=== PATIENT | female | born 1975 | race Hispanic/Latino ===

== ENCOUNTER 2017-07-15 22:22 | Emergency (ER) | payer BC ==
[2017-07-15 22:43] VITALS: BP 122/82; PULSE 111; TEMP 98.1; BMI 22.1
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
[2017-07-16 00:33] VITALS: RESP 18; O2SAT 99
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
== END 2017-07-16 00:33 | disposition left against medical advice (07) ==
LOC: ED 22:22
DX: S09.93XA Unspecified injury of face, initial encounter (principal); Y04.0XXA Assault by unarmed brawl or fight, initial encounter; Y92.009 Unspecified place in unspecified non-institutional (private) residence as the place of occurrence of the external cause

== ENCOUNTER 2018-07-03 16:48 | Emergency (ER) | payer OTHER, BC ==
[2018-07-03 16:54] VITALS: BMI 21.4
[2018-07-03 16:57] VITALS: RESP 18; TEMP 98
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
[2018-07-03 19:48] VITALS: BP 131/75
[2018-07-03 20:07] VITALS: PULSE 81; O2SAT 100
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
== END 2018-07-03 20:02 | disposition home or self-care (01) ==
LOC: ED 16:48
DX: M54.2 Cervicalgia (principal); S09.90XA Unspecified injury of head, initial encounter; V49.9XXA Car occupant (driver) (passenger) injured in unspecified traffic accident, initial encounter
CPT/HCPCS: 70450; 96372; 99285; J1885

== ENCOUNTER 2018-11-30 17:02 | Emergency (ER) | payer BC, OTHER ==
[2018-11-30 17:12] VITALS: BMI 22.1
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
[2018-11-30 19:23] VITALS: BP 121/56; PULSE 73; RESP 19; TEMP 98; O2SAT 98
== END 2018-11-30 19:23 | disposition home or self-care (01) ==
LOC: ED 17:02
DX: F10.129 Alcohol abuse with intoxication, unspecified (principal)